=== PATIENT | male | born 1990 | race Caucasian/White ===

== ENCOUNTER 2018-01-14 09:20 | Emergency (ER) | payer SELFPAY ==
[~2018-01-14] VITALS: Ht 200.7 cm; Wt 83.2 kg
[2018-01-14 12:20] VITALS: BP 136/89
== END 2018-01-14 12:21 | disposition home or self-care (01) ==
LOC: EME 09:20
PROC: 0H98XZZ Drainage of Buttock Skin, External Approach (ICD-10-PCS; principal; 2018-01-14)
DX: L02.31 Cutaneous abscess of buttock (principal); R11.0 Nausea
CPT/HCPCS: 99281; 99284